=== PATIENT | male | born 1955 | race Two or more races ===

== ENCOUNTER 2017-07-13 16:20 | Inpatient (IN) | payer MEDICARE, MEDICAID ==
--- NOTE | 2017-07-13 17:15 | ED Physician Chart ---
ED Chief Complaint/HPI - Patient Information Date Seen:: 07/13/17 Time Seen:: 17:10 Chief Complaint:: Left leg pain History of Present Illness:: 62 yo male had left leg pain especially in the ankle area for 3 weeks worsening for 2 days. The left leg could not bear weight for 3 weeks. Patient stated that there was some swelling of the left leg pain. Patient had SOB due to CHF for 2 years. Patient had diarrhea for 2 days. 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 Allergies:: Allergies Allergy/AdvReac Type Severity Reaction Status Date / Time No Known Allergies Allergy Verified 07/13/17 16:39 Vitals:: Vital Signs - 8 hr 07/13/17 16:39 Temp 98.5 F HR 113 RR 22 BP 179/102 O2 Sat % 100 ED Review of Systems - Review of Systems General/Constitutional: No fever, No chills Skin: No bruising Head: No headache Eyes: No pain ENT: No nasal drainage Neck: No neck pain Cardio Vascular: No chest pain Pulmonary: SOB, No cough GI: No nausea, No vomiting, Diarrhea Musculoskeletal: Bone or joint pain Neurological: Weakness ED Past Medical History - Past Medical History Past Medical History: CHF, Other (Peripheral arterial disease) Social History: Non Smoker (former smoker), No Alcohol, No Drug Use Surgical History: Pacemaker, other (Right above knee amputation) Family Medical History - Family Member Mother History Unknown: Yes ED Physical Exam - Physical Examination General/Constitutional: Awake, Alert Head: Atraumatic Eyes: PERRL Skin: No ecchymosis ENMT: Nasal exam nl Neck: No nuchal rigidity Respiratory: No Wheeze/Rhonchi/Rales Other Cardio Vascular comments:: Tachycardia, II/ systolic murmur GI: No tenderness/rebounding/guarding Other Extremities comments:: Left lower extremity 2+ diffuse edema Other Neuro/Psych comments:: Oriented to self and place, not time ED Labs/Radiology/EKG Results - Lab Results Results: Laboratory Last Values WBC 12.7 Th/cmm (4.8-10.8) H 07/13/17 17:45 RBC 3.83 Mil/cmm (4.30-5.70) L 07/13/17 17:45 Hgb 9.8 gm/dL (12-16) L 07/13/17 17:45 Hct 30.0 % (41.0-60) L 07/13/17 17:45 MCV 78.3 fl (80-99) L 07/13/17 17:45 MCH 25.7 pg (26.0-30.0) L 07/13/17 17:45 MCHC Differential 32.8 pg (28.0-36.0) 07/13/17 17:45 RDW 26.1 % (11.5-20.0) H 07/13/17 17:45 Plt Count 391 Th/cmm (150-400) 07/13/17 17:45 MPV 6.1 fl 07/13/17 17:45 Band Neutrophils % 0 % (0-10) 07/13/17 17:45 Neutrophils (Manual) 82 % (40-80) H 07/13/17 17:45 Lymphocytes 10 % (20-50) L 07/13/17 17:45 Monocytes 8 % (2-10) 07/13/17 17:45 Eosinophils 0 % (0-5) 07/13/17 17:45 Basophils 0 % (0-3) 07/13/17 17:45 Anisocytosis 3+ 07/13/17 17:45 Microcytosis 1+ 07/13/17 17:45 D-Dimer 1420 ng/mL (100-400) H 07/13/17 17:45 Sodium 127 mEq/L (136-145) L 07/13/17 17:45 Potassium 4.0 mEq/L (3.5-5.1) 07/13/17 17:45 Chloride 100 mEq/L (98-107) 07/13/17 17:45 Carbon Dioxide 18.2 mEq/L (21.0-31.0) L 07/13/17 17:45 Anion Gap 12.8 (7.0-16.0) 07/13/17 17:45 BUN 16 mg/dL (7-25) 07/13/17 17:45 Creatinine 1.0 mg/dL (0.7-1.3) 07/13/17 17:45 Est GFR ( Amer) > 60.0 ml/min (>90) 07/13/17 17:45 Est GFR (Non-Af Amer) > 60.0 ml/min 07/13/17 17:45 BUN/Creatinine Ratio 16.0 07/13/17 17:45 Glucose 101 mg/dL (70-105) 07/13/17 17:45 Whole Bld Lactic Acid 0.88 mmol/L (0.60-1.99) 07/13/17 Unknown Calcium 8.9 mg/dL (8.6-10.3) 07/13/17 17:45 Total Bilirubin 0.6 mg/dL (0.3-1.0) 07/13/17 17:45 AST 15 U/L (13-39) 07/13/17 17:45 ALT 12 U/L (7-52) 07/13/17 17:45 Alkaline Phosphatase 178 U/L (34-104) H 07/13/17 17:45 Troponin I 0.03 ng/mL (0.01-0.05) 07/13/17 17:45 B-Natriuretic Peptide > 5000.0 pg/mL (5.0-100.0) H 07/13/17 17:45 Total Protein 7.3 gm/dL (6.0-8.3) 07/13/17 17:45 Albumin 3.4 gm/dL (4.2-5.5) L 07/13/17 17:45 Globulin 3.9 gm/dL 07/13/17 17:45 Albumin/Globulin Ratio 0.9 (1.0-1.8) L 07/13/17 17:45 - Radiology Results Results: CXR: s/p pacemaker, cardiomegaly, no focal consolidation LLE venous u/s: no DVT LLE arterial u/s: moderate plaques in the arterial system - EKG Interpretations EKG Time:: 17:38 Rate & Rhythm: sinus tachycardia [place]: left atrial enlargement, LVH Intervals: left anterior fascicular block ED Assessment - Assessment General Assessment: LLE pain secondary to peripheral arterial disease Hypertension CHF Leukocytosis Microcytic anemia Hyponatremia Elevated D-Dimer Assessment/Comments:: CBC, CMP, UA, urine drug screen LLE venous and arterial ultrasound: peripheral arterial disease Toradol 30mg IV Levofloxacin 500mg IV Lasix 40mg IV Admit to telemetry for further evaluation and management ED Septic Shock - . Is Septic Shock (SBP<90, OR Lactate>4 mmol\L) present?: No - <6hrs of presentation: Vital Signs: Vital Signs - 8 hr 07/13/17 16:39 Temp 98.5 F HR 113 RR 22 BP 179/102 O2 Sat % 100 ED Reassessment (Disposition) - Reassessment Reassessment Condition:: Improved - Patient Disposition Discharge/Transfer:: Acute Care w/in this hosp Admitting Medical Physician:: Ozzy Martinez
[2017-07-13 17:48] LABS: HEMOGLOBIN 9.8 gm/dL (12-16); MEAN CELL VOLUME 78.3 fl (80-99); MEAN CORPUSCULAR HEMOGLOBIN 25.7 pg (26.0-30.0); MEAN CORPUSCULAR HGB CONC 32.8 pg (28.0-36.0); MEAN PLATELET VOLUME 6.1 fl; PLATELET COUNT 391 Th/cmm (150-400); RED BLOOD COUNT 3.83 Mil/cmm (4.30-5.70); RED CELL DISTRIBUTION WIDTH 26.1 % (11.5-20.0)
[2017-07-13 17:54] LABS: WHITE BLOOD COUNT 12.7 Th/cmm (4.8-10.8)
[2017-07-13 17:55] LABS: MANUAL DIFF REQUIRED? YES
[2017-07-13 18:10] LABS: ALB/GLOB RATIO 0.9 (1.0-1.8); ALBUMIN 3.4 gm/dL (4.2-5.5); ALKALINE PHOSPHATASE 178 U/L (34-104); ANION GAP 12.8 (7.0-16.0); BILIRUBIN,TOTAL 0.6 mg/dL (0.3-1.0); BUN - UREA NITROGEN 16 mg/dL (7-25); CALCIUM SERUM 8.9 mg/dL (8.6-10.3); CARBON DIOXIDE 18.2 mEq/L (21.0-31.0); CHLORIDE 100 mEq/L (98-107); GFR AFRICAN-AMERICAN > 60.0 ml/min (>90); GFR NON AFRICAN-AMERICAN > 60.0 ml/min; GLUCOSE 101 mg/dL (70-105); SGOT 15 U/L (13-39); SGPT/ALT 12 U/L (7-52); SODIUM SERUM 127 mEq/L (136-145); TOTAL PROTEIN,SERUM 7.3 gm/dL (6.0-8.3)
[2017-07-13] MEDS ORDERED: Sodium Chloride 0.9% 1,000 ML IV ONE (18:25)
[2017-07-13 18:36] LABS: DDIMER QUANT 1420 ng/mL (100-400)
[2017-07-13] MEDS ORDERED: Levofloxacin 500mg/100mL 500 MG/100 ML BAG IV ONE (18:38)
[2017-07-13 18:57] LABS: NEUTROPHILS 82 % (40-80); TOTAL CELLS COUNTED 100
[2017-07-13 18:58] LABS: ANISOCYTOSIS 3+; BAND NEUTROPHILE 0 % (0-10); BASOPHIL 0 % (0-3); EOSINOPHIL 0 % (0-5); LYMPHOCYTE 10 % (20-50); MONOCYTE 8 % (2-10)
[2017-07-13] MEDS ORDERED: Hydrocodone/APAP 5mg/325mg Tab PO PRN (22:25)
[2017-07-13] MEDS ORDERED: Magnesium Hydroxide (MOM) 30 mL UDC PO PRN (22:42)
[2017-07-13] MEDS ORDERED: Albuterol/Ipratropium Neb 3 ML AERS HHN PRN (22:42)
[2017-07-13] MEDS: Hydrocodone/APAP 10 mg/325 mg Tab PO PRN (23:24)
--- NOTE | 2017-07-13 23:39 | History & Physical ---
ADMIT DATE: 07/14/2017 CHIEF COMPLAINT: Severe left leg pain and weakness as well as short of breath. HISTORY OF PRESENT ILLNESS: The patient is a 62-year-old male admitted from the Emergency Room to telemetry floor of the [facility] due to multiple complicated medical conditions. The patient had severe left lower extremity pain with progressive worsening to the point that the patient really wanted to come to the Emergency Room. The patient is known to have peripheral vascular disease and status post right AKA as a result over 10 years ago. According to ER physician, there is also severe peripheral artery disease involving the left lower extremity. From the studies done today in the Emergency Room; however, the official report is not available from the computer yet. The patient complains of severe pain and his white count is elevated to 12,700. He is also anemic. Hemoglobin 9.8, hematocrit 30. The patient's BNP is over 5000. He does have coronary artery disease, status post NC and congestive heart failure as well. The patient is already on multiple medications, which were adjusted by his hot roll inspector. PAST MEDICAL HISTORY: Including peripheral vascular disease, status post right AKA, coronary artery disease, status post NC, congestive heart failure, COPD, chronic pain syndrome, constipation, hypertension, anemia, gastroesophageal reflux disease. PAST SURGICAL HISTORY: Status post right AKA due to severe peripheral vascular disease over 10 years ago. MEDICATIONS: See medication reconciliation list. ALLERGIES: No known drug allergy. FAMILY HISTORY: Noncontributory. SOCIAL HISTORY: The patient smoked heavily and he is still smoking now. Denies alcohol or IV drug abuse. REVIEW OF SYSTEMS: As per HPI. PHYSICAL EXAMINATION: GENERAL: A well-developed thin male in no acute distress. SKIN: Warm and dry. VITAL SIGNS: Basically stable except hypertension with blood pressure 179/102 which is partially due to pain. HEENT: Normocephalic, atraumatic. Pupils equal, round, react to light and accommodation. CHEST: Symmetrical. LUNGS: Few wheezing appreciated bilaterally with rhonchi at lung base. CARDIAC: Tachycardia. ABDOMEN: Benign, soft, nontender. EXTREMITIES: Status post right AKA. Left extremity with swelling and severe pain and decreased range of motion. NEUROLOGICAL: Unremarkable. LABORATORY DATA: Reviewed, seen from the computer. Sodium 127. BNP more than 5000. WBC 12,700, hemoglobin 9.8, hematocrit 30. ASSESSMENT AND PLAN: 1. Severe peripheral artery disease, status post right AKA and now with severe left peripheral artery disease: Vascular surgeon consultation request already and appreciated. 2. Congestive heart failure with marked elevated BNP: We will continue the medications, which were adjusted from the patient's primary hot roll inspector as outpatient. 3. Short of breath: Due to chronic obstructive pulmonary disease and congestive heart failure and RT protocol orders. Medication will be adjusted accordingly. 4. Respiratory insufficiency: Multifactorial. Aspiration precaution to be exercised. 5. Leukocytosis: Multifactorial. Depending upon culture result, we will adjust antibiotic accordingly. 6. Chronic obstructive pulmonary disease: RT protocol. 7. Coronary artery disease, status post myocardial infarction. 8. Chronic pain syndrome. 9. Hypertension: Adjust medications as needed. 10. DVT prophylaxis. JOB# [id number]
[2017-07-14 00:54] VITALS: BP 172/98
[2017-07-14] MEDS: Hydrocodone/APAP 10 mg/325 mg Tab PO PRN ×2 (03:58→09:28)
[2017-07-14 06:51] LABS: URINE MICROSCOPIC INDICATED? YES; URINE SOURCE RANDOM
[2017-07-14 07:04] LABS: URINE BILIRUBIN NEGATIVE (NEGATIVE); URINE BLOOD NEGATIVE (NEGATIVE); URINE GLUCOSE (UA) NEGATIVE (NEGATIVE); URINE KETONE NEGATIVE (NEGATIVE); URINE LEUKOCYTE ESTERASE NEGATIVE (NEGATIVE); URINE NITRATE NEGATIVE (NEGATIVE); URINE PROTEIN NEGATIVE (NEGATIVE); URINE UROBILINOGEN 0.2 E.U./dL (0.2 - 1.0)
[2017-07-14 07:09] LABS: URINE COLOR YELLOW
[2017-07-14 07:10] LABS: URINE CLARITY CLEAR (CLEAR)
[2017-07-14 07:11] LABS: URINE RBC NONE SEEN /hpf (0-5)
[2017-07-14 07:12] LABS: URINE BACTERIA FEW /hpf (NONE SEEN); URINE EPITHELIAL CELLS RARE /lpf (FEW); URINE WBC 0-2 /hpf (0-5)
[2017-07-14 07:22] LABS: AMPHETAMINE URINE NEGATIVE (NEGATIVE); BARBITURATES URINE NEGATIVE (NEGATIVE); BENZODIAZEPINES QUAL URINE POSITIVE (NEGATIVE); CANNABINOID THC NEGATIVE (NEGATIVE); COCAINE METABOLITE QUAL URINE NEGATIVE (NEGATIVE); METHADONE URINE NEGATIVE (NEGATIVE); METHAMPHETAMINES QUAL URINE NEGATIVE (NEGATIVE); OPIATES (MORPHINE) QUAL. URINE POSITIVE (NEGATIVE); PHENCYCLIDINE (PCP) URINE NEGATIVE (NEGATIVE); TRICYCLICS (TCA) QUAL. URINE NEGATIVE (NEGATIVE)
[2017-07-14] MEDS ORDERED: Pantoprazole 40 mg EC Tab PO SCH (07:30)
[2017-07-14] MEDS ORDERED: APAP/Oxycodone 5/325mg Oral Tab PO PRN (07:37)
[2017-07-14] MEDS ORDERED: Multivitamin Tab PO SCH (09:00)
[2017-07-14] MEDS ORDERED: Ferrous Sulfate 325 MG TAB PO SCH (09:00)
[2017-07-14] MEDS ORDERED: Nicotine 21 mg/24 hr Tdm TD SCH (09:00)
--- NOTE | 2017-07-14 09:10 | Diagnostic Imaging Report ---
Left lower extremity DVT study HISTORY: Pain COMPARISON: None Technique: Longitudinal and transverse sonographic images of the left lower extremity veins were obtained with doppler analysis. FINDINGS: There is normal compressibility, augmentation and phasicity of the left common femoral, superficial femoral, popliteal, and posterior tibial veins. No thrombus is visualized. IMPRESSION: No evidence of thrombus within the left lower extremity veins.
--- NOTE | 2017-07-14 09:16 | Diagnostic Imaging Report ---
Left lower extremity arterial Doppler study HISTORY: Pain, history of peripheral vascular disease COMPARISON: None Technique: Longitudinal and transverse sonographic images of the left lower extremity arteries were obtained with doppler analysis. FINDINGS: Exam of the left lower extremity demonstrates moderate to severe generalized atherosclerotic vascular disease with large calcified plaque seen in the region of the proximal superficial femoral artery. Primarily biphasic waveforms are noted. The left RACQUEL was not able to be obtained as patient was uncooperative. No sonographic evidence of occlusion. Left lower extremity subcutaneous edema is noted. IMPRESSION: Moderate to severe generalized atherosclerotic vascular disease with areas of calcified plaque formation including focal calcified plaque of the proximal superficial femoral artery. No sonographic evidence of occlusion. If clinically warranted follow-up exam such as CT angiography of the left lower extremity may be obtained for further assessment. Left lower extremity subcutaneous edema.
--- NOTE | 2017-07-14 09:21 | Diagnostic Imaging Report ---
CHEST X-RAY: AP view INDICATION: Shortness of breath COMPARISON: None FINDINGS: Left chest wall AICD is noted with leads in the region of the right atrium and right ventricle. There is no focal consolidation or pleural effusions . Mild cardiomegaly is noted with atherosclerosis.. The osseous structures demonstrate no acute abnormalities. IMPRESSION: No focal airspace consolidation identified. AICD noted. Mild cardiomegaly with atherosclerotic vascular disease.
--- NOTE | 2017-07-14 09:25 | Diagnostic Imaging Report ---
CHEST X-RAY: AP view INDICATION: Shortness of breath COMPARISON: 07/13/2017 FINDINGS: Left chest wall AICD is stable. No focal consolidation pleural effusions or evidence of davin CHF. Cardiomegaly is noted with atherosclerosis. IMPRESSION: No focal consolidation or evidence of davin CHF. Cardiomegaly and atherosclerotic vascular disease.
[2017-07-14] MEDS ORDERED: Probiotic Screen MC PRN (09:45)
--- NOTE | 2017-07-14 11:15 | History & Physical ---
ADMIT DATE: 07/14/2017 VASCULAR CONSULTATION REFERRING PHYSICIAN: Ozzy Martinez M.D. REASON FOR CONSULTATION: Pain in left leg. Thank you for referring this patient to me. HISTORY OF PRESENT ILLNESS: A 62-year-old male who has history of peripheral vascular disease resulting in right above-knee amputation. He claims he has been having pain for the last 3 weeks and worsening 2 days prior to admission involving the left leg. Ultrasound Doppler study was done and did show peripheral vascular disease with no evidence of occlusion. The venous study is negative for DVT. PHYSICAL EXAMINATION: EXTREMITIES: There is edema of the left leg and there is no Homans sign. There is no evidence at this point of any discrete purplish discoloration of the toes, of the foot indicating acute ischemic disease. The patient has AICD in place and has been prescribed Plavix. Other significant finding on laboratory test is the BNP in excess of 5000. The patient is adamant on signing out now. He was told about the risk of signing out before complete studies are done, particularly in regards to CHF. He is on a wheelchair now and wants to go to the [facility] to smoke. 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 JOB# [id number] [facility]
[2017-07-15] MEDS ORDERED: Lactobacillus Rhamnosus GG 15 Billion CFU CAP.SPRINK PO SCH (09:00)
--- NOTE | 2017-07-16 04:36 | Discharge Summary ---
DATE OF DISCHARGE: 07/14/2017 Discharge Summary DATE OF ADMISSION: 07/13/2017 DATE OF DISCHARGE: 07/14/2017 FINAL DIAGNOSES: 1. Severe peripheral vascular disease. 2. Congestive heart failure with shortness of breath. 3. Respiratory insufficiency. 4. Leukocytosis. 5. Chronic obstructive pulmonary disease. 6. Chronic pain syndrome. 7. Coronary artery disease status post myocardial infarction. 8. Hypertension. HOSPITAL COURSE: The patient is a 62-year-old male admitted from the emergency room due to severe left lower extremity pain from severe peripheral artery disease. The patient also has shortness of breath due to severe COPD and congestive heart failure. The patient's white count was elevated as well and empiric antibiotics started. Blood culture and urine culture ordered. The patient was very agitated and complained of pain. Medication was adjusted and was provided. The second day after the admission, on July 14, the patient did insist on going to gas station, which was not permitted and he signed out AMA. JOB# [id number]
== END 2017-07-14 11:30 | disposition left against medical advice (07) | DRG 299 ==
LOC: ER 16:20 → TELE 21:38
PROVIDERS: ADMIT Internal Medicine; ATTEND Internal Medicine
DX: I73.9 Peripheral vascular disease, unspecified (principal); I50.43 Acute on chronic combined systolic (congestive) and diastolic (congestive) heart failure; E87.1 Hypo-osmolality and hyponatremia; I11.0 Hypertensive heart disease with heart failure; R19.7 Diarrhea, unspecified; D72.829 Elevated white blood cell count, unspecified; D50.9 Iron deficiency anemia, unspecified; I25.10 Atherosclerotic heart disease of native coronary artery without angina pectoris; J44.9 Chronic obstructive pulmonary disease, unspecified; G89.4 Chronic pain syndrome; K21.9 Gastro-esophageal reflux disease without esophagitis; R06.89 Other abnormalities of breathing; Z53.21 Procedure and treatment not carried out due to patient leaving prior to being seen by health care provider; Z89.611 Acquired absence of right leg above knee; I25.2 Old myocardial infarction; Z87.891 Personal history of nicotine dependence; Z95.0 Presence of cardiac pacemaker
CPT/HCPCS: 36415-UA; 71045-TC; 80053-TC; 80307; 81001-TC; 83605; 83880-TC; 84484-TC; 85007-TC; 85025-TC; 85027-TC; 85379-TC; 87086-90; 93005; 93926-LT-TC; 93971-TC-LT; 94640; 94760; 96375; J1885; J1956; J2543